=== PATIENT | female | born 1960 | race Caucasian/White ===

== ENCOUNTER 2020-09-24 15:32 | Emergency (ER) | payer MEDICARE, MEDICAID ==
[2020-09-24] MEDS ORDERED: HYDROmorphone 1 MG/ML Syringe IVPUSH ONE ×2 (16:12→19:45)
[2020-09-24] MEDS ORDERED: Lactated Ringers 1,000 ML IV SCH (16:15)
[2020-09-24 16:41] LABS: BLOOD UREA NITROGEN,BUN 4 mg/dL (7.0-18.0); CARBON DIOXIDE,CO2 24.9 mmol/L (21.0-32.0); CHLORIDE,CL 101 mmol/L (98-107); GLUCOSE RANDOM 97 mg/dL (74-106); LIPASE 17 U/L (73-393); POTASSIUM,K 3.6 mmol/L (3.5-5.1); SODIUM,NA 136 mmol/L (136-145)
[2020-09-24] MEDS ORDERED: diphenhydrAMINE 50 MG/ML SDV IVPUSH ONE (17:01)
[2020-09-24] MEDS ORDERED: Haloperidol Lactate 5 MG/ML SDV IM ONE (17:01)
[2020-09-24] MEDS ORDERED: Magnesium Sulfate/Water 2 GM/50 ML BAG IV ONE (17:02)
[2020-09-24] MEDS ORDERED: Iopamidol 755 MG/ML 500 ML Multipack Bottle IVPUSH ONE (17:29)
--- NOTE | 2020-09-24 17:55 | CT ---
INDICATION: Epigastric pain, history of pancreatitis. TECHNIQUE: IV contrast-enhanced CT abdomen and pelvis. 100 mL Isovue-370 injected. COMPARISON: 07/13/2018 CT, 08/05/2018 MRI. FINDINGS: The pancreas is atrophic. There are parenchymal calcifications throughout the pancreas. The pancreatic duct appears mildly dilated and somewhat irregular. These findings are compatible with chronic pancreatitis and are similar to the prior CT. There is increased dilation of the biliary tree, both intrahepatic and extrahepatic. Common bile duct measures 1.5 cm in diameter. It appears to taper somewhat within the pancreatic head. The gallbladder is distended on today`s exam. Findings suggest distal common bile duct obstruction. Spleen, adrenal glands, kidneys unremarkable. No bowel obstruction. Trace fluid in the pelvis. No adenopathy or free air. Chronic healed left iliac wing fracture. IMPRESSION: 1. Increased biliary dilation and gallbladder distention. Suspect distal common bile duct obstruction. Correlation with liver enzymes recommended. Consider ERCP. 2. Findings of chronic pancreatitis. Please note that all CT scans at this facility use dose modulation, iterative reconstruction, and/or weight-based dosing when appropriate to reduce radiation dose to as low as reasonably achievable. Dictated by Brandan Stewart MD @ Sep 24 2020 5:44PM Signed by Dr. Brandan Stewart @ Sep 24 2020 5:53PM
[2020-09-24] MEDS ORDERED: Sodium Chloride 0.9% 1,000 ML IV ONE (18:41)
[2020-09-24] MEDS ORDERED: Sodium Chloride 0.9% 10 ML Syringe FLUSH PRN (18:41)
[2020-09-24] MEDS ORDERED: Sodium Chloride 0.9% 2.5 ML Syringe FLUSH PRN (18:41)
[2020-09-24] MEDS ORDERED: Piperacillin/Tazobactam 4.5 GM in Sodium Chloride 0.9% 100 ML IV ONE ×2 (18:41→19:50)
[2020-09-24] MEDS ORDERED: Vancomycin 1.5 GM in Dextrose 5% in Water 250 ML IV ONE ×2 (18:41)
--- NOTE | 2020-09-24 18:41 | EDM.PDOC ---
ED HPI GENERAL MEDICAL PROBLEM - General Chief Complaint: Abdominal Pain Stated Complaint: ABDOMINAL PAIN Time Seen by Provider: 09/24/20 15:53 - History of Present Illness INITIAL COMMENTS - FREE TEXT/NARRATIVE: CHIEF COMPLAINT(S): Abdominal pain HISTORY OF PRESENT ILLNESS: This is a 60-year-old woman with a past medical history of chronic pancreatitis who comes to the emergency department with a chief complaint of abdominal pain. The patient states that she has been experiencing abdominal pain located throughout her abdomen. She denies any vomiting but states that she does have some nausea. She states that she does have oily stool and diarrhea which is similar to prior. She describes her abdominal pain as 8-10 out of 10 in the upper quadrants without any radiation. She states that this feels slightly different than her pancreatitis in the past. She states that she does have a history of pseudocyst where they did place a drain. She states that she uses a fentanyl patch and takes Dilaudid. She states that she did take Dilaudid prior to arrival and the pain has not improved. She denies any alcohol usage but did have different foods for the holiday. She states that she is also had some decreased weight in the last year because of decreased appetite. She states that she did have a colonoscopy approximately 1 year ago which was unremarkable. She states that she has not had a pancreatic flare since 2007. She denies any chest pain, shortness of breath, or fever. REVIEW OF SYSTEMS: Constitutional: Denies fever, chills. Eyes: Denies eye pain Ears, Nose, Mouth, & Throat: Denies earache Cardiovascular: Denies chest pain Respiratory: Denies shortness of breath Gastrointestinal: Positive for abdominal pain and nausea and chronic diarrhea. Denies vomiting, melena, hematochezia Genitourinary: Denies hematuria, dysuria Skin:Denies a rash Neurological: Denies blurred vision Psychiatric: Denies depression PAST MEDICAL HISTORY: As per history of present illness and as reviewed below otherwise noncontributory. SURGICAL HISTORY: As per history of present illness and as reviewed below otherwise noncontributory. SOCIAL HISTORY: As per history of present illness and as reviewed below other [place] noncontributory. FAMILY HISTORY: As per history of present illness and as reviewed below otherwise noncontributory. EXAMINATION OF ORGAN SYSTEMS/BODY AREAS: Constitutional: Blood pressure was 123/85, rate is 113, respiratory rate 18 with an oxygen saturation 95% on room air. Temperature 37.3 orally. General: Say elderly woman who appears to be in a significant amount of pain. Psychiatric: Appropriate mood and affect. Eyes: No scleral icterus or conjunctival erythema ENMT: Moist mucous membranes. No pharyngeal erythema Cardiovascular: Regular, rate, and rhythm. No gallops, murmurs, or rubs. Bilateral upper extremity pulses symmetric and intact. No peripheral edema. No JVD. Respiratory: Lungs clear to auscultation bilaterally. No wheezes, rales, or rhonchi. Gastrointestinal: Soft, nondistended, tenderness to palpation in the right upper quadrant and epigastric region. No rebound or guarding. Normal bowel sounds. Genitourinary: No suprapubic tenderness Musculoskeletal: Normal range of motion. Skin: No lesions or abrasions. Neurological: Alert, GCS 15 MEDICAL DECISION MAKING AND COURSE IN THE ED WITH INTERPRETATION/REVIEW OF DIAGNOSTIC STUDIES: This is a 60-year-old 9 with a past medical history of chronic pancreatitis who comes to the emergency department with epigastric and right upper quadrant pain associated with nausea who is tachycardic but afebrile. At this time I do suspect the possibility of acute on chronic pancreatitis. Will obtain labs including CBC, CMP, and lipase. Will obtain a urinalysis. We will provide the patient with 1 mg of IV Dilaudid and obtain a CT abdomen pelvis with IV contrast to evaluate for pseudocyst or abscess formation. We will also provide the patient with 1 L of lactated Ringer's bolus. Laboratory: CBC reveals a leukocytosis of 17.42 with hemoconcentration of her laboratory values including a hemoglobin of 19.1 and hematocrit of 54.7. Platelets are normal. CMP is unremarkable. Lipase is normal. Magnesium is low at 1.6. Urinalysis was a clean catch and was negative for leukocyte esterase, negative for nitrites, and positive for blood. Interpretation: Hematuria The radiological images were viewed by myself along with reading the report from the radiologist. CT abdomen pelvis with IV contrast reveals increased biliary dilatation and gallbladder distention. Suspect distal common bile duct obstruction. Correlate with liver enzymes is recommended. After CT finding I did discuss the results with the patient. At this time I discussed that I like to obtain an ultrasound. I discussed with her that I be contacting [facility] in [place] to speak with a GI specialist for further recommendations. In addition at this time given the leukocytosis and findings on CT I did start the sepsis protocol for intra-abdominal infection. We will provide the patient with equivalent of 30 cc/kg fluid bolus and start the patient on Zosyn and vancomycin. Blood cultures and lactic acid will also be obtained. Patient had continued pain after initial administration of Dilaudid therefore I provided patient with Haldol and Benadryl for pain and nausea relief. Laboratory: Lactic acid is 2.0. Covid is negative. We did contact, [facility] [place] none of them are able to do ERCP. Therefore we contacted [facility] and spoke with Dr. Portillo who accepted the transfer. At the time of transfer the patient's abdominal ultrasound was completed but not yet read. The patient will be transferred via fixed wing. The radiological images were viewed by myself along with reading the report from the radiologist. Abdominal ultrasound reveals dilated biliary tree as seen on CT with sludge in the gallbladder but no obvious stones. There is pancreatic calcification and mild ductal dilation. DISPOSITION: The patient will be transferred to [facility] via fixed wing in stable condition CONDITION: Serious PROCEDURES: None FINAL IMPRESSION(S)/DIAGNOSES: 1. Acute sepsis likely secondary to choledocholithiasis Memo Jorgensen M.D. abdomen Pain Score (Numeric/FACES): 9 - Related Data Allergies Allergy/AdvReac Type Severity Reaction Status Date / Time No Known Allergies Allergy Verified 09/24/20 16:00 Home Meds: Home Meds Amylase/Lipase/Protease [Tim FAROOQ 24,000 Unit] 1 each PO ASDIRECTED 07/13/18 [History] HYDROmorphone HCl [Dilaudid] 8 mg PO ASDIRECTED PRN 07/13/18 [History] fentaNYL [Duragesic] 1 patch IDERM ASDIRECTED 07/13/18 [History] Past Medical History HEENT History: Reports: None Cardiovascular History: Reports: None Respiratory History: Reports: None Gastrointestinal History: Reports: Pancreatitis Other Gastrointestinal History: Pancreatic Cyst Genitourinary History: Reports: None [employer] History: Reports: None Musculoskeletal History: Reports: Osteoporosis Neurological History: Reports: None Psychiatric History: Reports: Anxiety, Depression Endocrine/Metabolic History: Reports: None Hematologic History: Reports: None Immunologic History: Reports: None Oncologic (Cancer) History: Reports: None Dermatologic History: Reports: None - Infectious Disease History Infectious Disease History: Reports: None - Past Surgical History Head Surgeries/Procedures: Reports: None HEENT Surgical History: Reports: None GI Surgical History: Reports: Appendectomy Musculoskeletal Surgical History: Reports: Other (See Below) Other Musculoskeletal Surgeries/Procedures:: Left hip Social & Family History - Family History Family Medical History: No Pertinent Family History - Tobacco Use Tobacco Use Status *Q: Current Every Day Tobacco User Years of Tobacco use: 50 Packs/Tins Daily: 0.5 - Caffeine Use Caffeine Use: Reports: Coffee - Recreational Drug Use Recreational Drug Use: Yes Recreational Drug Type: Reports: Marijuana/Hashish ED ROS GENERAL - Review of Systems Review Of Systems: See Below ED EXAM, GI/ABD - Physical Exam Exam: See Below Course - Vital Signs Last Recorded V/S: Last Vital Signs Temp 37.3 C 09/24/20 18:09 Pulse 99 09/24/20 19:03 Resp 16 09/24/20 19:03 BP 120/69 09/24/20 19:03 Pulse Ox 93 L 09/24/20 19:03 - Orders/Labs/Meds Orders: Active Orders 24 hr Category Date Time Status Blood Pressure Mgt: Sepsis [RC] Q15MX2 Care 09/24/20 18:42 Active CULTURE BLOOD [BC] Stat Lab 09/24/20 19:10 Received CULTURE BLOOD [BC] Stat Lab 09/24/20 19:20 Received Lactated Ringers [Ringers, Lactated] 1,000 ml Med 09/24/20 16:15 Active IV ASDIRECTED Sodium Chloride 0.9% [Saline Flush] Med 09/24/20 18:41 Active 10 ml FLUSH ASDIRECTED PRN Sodium Chloride 0.9% [Saline Flush] Med 09/24/20 18:41 Active 2.5 ml FLUSH ASDIRECTED PRN Blood Culture x2 Reflex Set [OM.PC] Stat Oth 09/24/20 18:42 Ordered Saline Lock Insert [OM.PC] Stat Oth 09/24/20 18:42 Ordered Severe Sepsis Onset Time [OM.PC] Stat Oth 09/24/20 18:42 Ordered Medication Orders Lactated Ringer's (Ringers, Lactated) 1,000 mls @ 999 mls/hr IV ASDIRECTED RIKA Last Admin: 09/24/20 16:35 Dose: 999 mls/hr Documented by: SIRIA Sodium Chloride (Saline Flush) 10 ml FLUSH ASDIRECTED PRN PRN Reason: Keep Vein Open Last Admin: 09/24/20 19:27 Dose: 10 ml Documented by: SIRIA Sodium Chloride (Saline Flush) 2.5 ml FLUSH ASDIRECTED PRN PRN Reason: Keep Vein Open Last Admin: 09/24/20 19:27 Dose: 2.5 ml Documented by: SIRIA Labs: Laboratory Tests 09/24/20 09/24/20 09/24/20 Range/Units 16:08 16:08 16:08 WBC 17.42 H (4.0-11.0) K/uL RBC 5.39 (4.30-5.90) M/uL Hgb 19.1 H (12.0-16.0) g/dL Hct 54.7 H (36.0-46.0) % MCV 101.5 H (80.0-98.0) fL MCH 35.4 H (27.0-32.0) pg MCHC 34.9 (31.0-37.0) g/dL RDW Std Deviation 50.9 (28.0-62.0) fl RDW Coeff of Waldo 14 (11.0-15.0) % Plt Count 233 (150-400) K/uL MPV 9.20 (7.40-12.00) fL Neut % (Auto) 76.2 (48.0-80.0) % Lymph % (Auto) 18.6 (16.0-40.0) % Sharkey % (Auto) 4.8 (0.0-15.0) % Eos % (Auto) 0.3 (0.0-7.0) % Baso % (Auto) 0.1 (0.0-1.5) % Neut # (Auto) 13.3 H (1.4-5.7) K/uL Lymph # (Auto) 3.2 H (0.6-2.4) K/uL Sharkey # (Auto) 0.8 (0.0-0.8) K/uL Eos # (Auto) 0.1 (0.0-0.7) K/uL Baso # (Auto) 0.0 (0.0-0.1) K/uL Nucleated RBC % 0.0 /100WBC Nucleated RBCs # 0 K/uL INR 1.29 Lactate (0.20-2.00) mmol/L Sodium 136 (136-145) mmol/L Potassium 3.6 (3.5-5.1) mmol/L Chloride 101 (98-107) mmol/L Carbon Dioxide 24.9 (21.0-32.0) mmol/L BUN 4 L (7.0-18.0) mg/dL Creatinine 0.8 (0.6-1.0) mg/dL Est Cr Clr Drug Dosing 63.77 mL/min Estimated GFR (MDRD) > 60.0 ml/min Glucose 97 (74-106) mg/dL Calcium 9.2 (8.5-10.1) mg/dL Magnesium 1.6 L (1.8-2.4) mg/dL Total Bilirubin 1.0 (0.2-1.0) mg/dL AST 18 (15-37) IU/L ALT 21 (14-63) IU/L Alkaline Phosphatase 115 (46-116) U/L Total Protein 7.7 (6.4-8.2) g/dL Albumin 3.7 (3.4-5.0) g/dL Globulin 4.0 (2.6-4.0) g/dL Albumin/Globulin Ratio 0.9 (0.9-1.6) Lipase 17 L (73-393) U/L Urine Color Urine Appearance Urine pH (5.0-8.0) Ur Specific [place] (1.001-1.035) Urine Protein (NEGATIVE) mg/dL Urine Glucose (UA) (NEGATIVE) mg/dL Urine Ketones (NEGATIVE) mg/dL Urine Occult Blood (NEGATIVE) Urine Nitrite (NEGATIVE) Urine Bilirubin (NEGATIVE) Urine Urobilinogen (<2.0) EU/dL Ur Leukocyte Esterase (NEGATIVE) Urine RBC (0-2/HPF) Urine WBC (0-5/HPF) Ur Epithelial Cells (NONE-FEW) Urine Bacteria (NEGATIVE) SARS-CoV-2 RNA (MOOSE) (NEGATIVE) 09/24/20 09/24/20 09/24/20 Range/Units 16:08 16:22 18:14 WBC (4.0-11.0) K/uL RBC (4.30-5.90) M/uL Hgb (12.0-16.0) g/dL Hct (36.0-46.0) % MCV (80.0-98.0) fL MCH (27.0-32.0) pg MCHC (31.0-37.0) g/dL RDW Std Deviation (28.0-62.0) fl RDW Coeff of Waldo (11.0-15.0) % Plt Count (150-400) K/uL MPV (7.40-12.00) fL Neut % (Auto) (48.0-80.0) % Lymph % (Auto) (16.0-40.0) % Sharkey % (Auto) (0.0-15.0) % Eos % (Auto) (0.0-7.0) % Baso % (Auto) (0.0-1.5) % Neut # (Auto) (1.4-5.7) K/uL Lymph # (Auto) (0.6-2.4) K/uL Sharkey # (Auto) (0.0-0.8) K/uL Eos # (Auto) (0.0-0.7) K/uL Baso # (Auto) (0.0-0.1) K/uL Nucleated RBC % /100WBC Nucleated RBCs # K/uL INR Lactate 2.0 (0.20-2.00) mmol/L Sodium (136-145) mmol/L Potassium (3.5-5.1) mmol/L Chloride (98-107) mmol/L Carbon Dioxide (21.0-32.0) mmol/L BUN (7.0-18.0) mg/dL Creatinine (0.6-1.0) mg/dL Est Cr Clr Drug Dosing mL/min Estimated GFR (MDRD) ml/min Glucose (74-106) mg/dL Calcium (8.5-10.1) mg/dL Magnesium (1.8-2.4) mg/dL Total Bilirubin (0.2-1.0) mg/dL AST (15-37) IU/L ALT (14-63) IU/L Alkaline Phosphatase (46-116) U/L Total Protein (6.4-8.2) g/dL Albumin (3.4-5.0) g/dL Globulin (2.6-4.0) g/dL Albumin/Globulin Ratio (0.9-1.6) Lipase (73-393) U/L Urine Color YELLOW Urine Appearance CLEAR Urine pH 6.0 (5.0-8.0) Ur Specific [place] <= 1.005 (1.001-1.035) Urine Protein NEGATIVE (NEGATIVE) mg/dL Urine Glucose (UA) NEGATIVE (NEGATIVE) mg/dL Urine Ketones NEGATIVE (NEGATIVE) mg/dL Urine Occult Blood LARGE H (NEGATIVE) Urine Nitrite NEGATIVE (NEGATIVE) Urine Bilirubin NEGATIVE (NEGATIVE) Urine Urobilinogen 0.2 (<2.0) EU/dL Ur Leukocyte Esterase NEGATIVE (NEGATIVE) Urine RBC 1-5 (0-2/HPF) Urine WBC 0-2 (0-5/HPF) Ur Epithelial Cells RARE (NONE-FEW) Urine Bacteria FEW (NEGATIVE) SARS-CoV-2 RNA (MOOSE) NEGATIVE (NEGATIVE) Meds: Medications Generic Name Dose Route Start Last Admin Trade Name Freq PRN Reason Stop Dose Admin Lactated Ringer's 1,000 mls @ 999 mls/hr 09/24/20 16:15 09/24/20 16:35 Ringers, Lactated IV 999 mls/hr ASDIRECTED RIKA Administration Sodium Chloride 10 ml 09/24/20 18:41 09/24/20 19:27 Saline Flush FLUSH 10 ml ASDIRECTED PRN Administration Keep Vein Open Sodium Chloride 2.5 ml 09/24/20 18:41 09/24/20 19:27 Saline Flush FLUSH 2.5 ml ASDIRECTED PRN Administration Keep Vein Open Discontinued Medications Generic Name Dose Route Start Last Admin Trade Name Freq PRN Reason Stop Dose Admin Diphenhydramine HCl 50 mg 09/24/20 17:01 09/24/20 17:10 Benadryl IVPUSH 09/24/20 17:02 50 mg ONETIME ONE Administration Haloperidol Lactate 5 mg 09/24/20 17:01 09/24/20 17:09 Haldol IM 09/24/20 17:02 5 mg ONETIME ONE Administration Hydromorphone HCl 1 mg 09/24/20 16:12 09/24/20 16:16 Dilaudid IVPUSH 09/24/20 16:13 1 mg ONETIME ONE Administration Hydromorphone HCl 1 mg 09/24/20 19:45 09/24/20 20:12 Dilaudid IVPUSH 09/24/20 19:46 1 mg ONETIME ONE Administration Magnesium Sulfate 2 gm in 50 mls @ 50 mls/hr 09/24/20 17:02 09/24/20 17:10 Magnesium Sulfate In Water Premix IV 09/24/20 18:01 50 mls/hr ONETIME ONE Administration Sodium Chloride 1,000 mls @ 2,000 mls/hr 09/24/20 18:41 09/24/20 19:26 Normal Saline IV 09/24/20 19:10 2,000 mls/hr BOLUS ONE Administration Protocol Piperacillin Sod/Tazobactam 100 mls @ 200 mls/hr 09/24/20 18:41 09/24/20 19:50 Sod 4.5 gm/ Sodium Chloride IV 09/24/20 19:10 Not Given STAT ONE Vancomycin HCl 1.5 gm/ 250 mls @ 167 mls/hr 09/24/20 18:41 09/24/20 19:50 Dextrose/Water IV 09/24/20 20:10 167 mls/hr ONETIME ONE Administration Sodium Chloride Confirm 09/24/20 19:39 09/24/20 19:50 Normal Saline Administered 09/24/20 19:40 Not Given Dose 100 mls @ as directed .ROUTE .STK-MED ONE Piperacillin Sod/Tazobactam 100 mls @ 200 mls/hr 09/24/20 19:50 09/24/20 19:51 Sod 4.5 gm/ Sodium Chloride IV 09/24/20 20:19 200 mls/hr ONETIME ONE Administration Iopamidol 100 ml 09/24/20 17:29 09/24/20 17:29 Isovue Multipack-370 (76%) IVPUSH 09/24/20 17:30 100 ml ONETIME ONE Administration Departure - Departure Time of Disposition: 19:38 Disposition: DC/Tfer to Acute Hospital 02 Condition: Serious Clinical Impression: Choledocholithiasis Sepsis Qualifiers: Sepsis type: sepsis due to unspecified organism Sepsis acute organ dysfunction status: without acute organ dysfunction Qualified Code(s): A41.9 - Sepsis, unspecified organism - Discharge Information *PRESCRIPTION DRUG MONITORING PROGRAM REVIEWED*: No *COPY OF PRESCRIPTION DRUG MONITORING REPORT IN PATIENT JANETT: No Referrals: Orion Salguero MD [Primary Care Provider] - Forms: ED Department Discharge Sepsis Event Note (ED) - Evaluation Sepsis Screening Result: No Definite Risk - Focused Exam Vital Signs: Vital Signs Temp Temp Pulse Resp BP Pulse Ox 09/24/20 19:03 99 16 120/69 93 L 09/24/20 18:09 37.3 C 09/24/20 18:04 93 18 108/54 L 94 L 09/24/20 17:14 107 H 20 133/73 94 L 09/24/20 16:37 108 H 20 123/79 95 09/24/20 15:56 35.8 C L 113 H 18 123/85 95 - My Orders Last 24 Hours: My Active Orders 09/24/20 16:15 Lactated Ringers [Ringers, Lactated] 1,000 ml IV ASDIRECTED 09/24/20 18:41 Sodium Chloride 0.9% [Saline Flush] 10 ml FLUSH ASDIRECTED PRN Sodium Chloride 0.9% [Saline Flush] 2.5 ml FLUSH ASDIRECTED PRN 09/24/20 18:42 Blood Pressure Mgt: Sepsis [RC] Q15MX2 Blood Culture x2 Reflex Set [OM.PC] Stat Saline Lock Insert [OM.PC] Stat Severe Sepsis Onset Time [OM.PC] Stat 09/24/20 19:10 CULTURE BLOOD [BC] Stat 09/24/20 19:20 CULTURE BLOOD [BC] Stat - Assessment/Plan Last 24 Hours: My Active Orders 09/24/20 16:15 Lactated Ringers [Ringers, Lactated] 1,000 ml IV ASDIRECTED 09/24/20 18:41 Sodium Chloride 0.9% [Saline Flush] 10 ml FLUSH ASDIRECTED PRN Sodium Chloride 0.9% [Saline Flush] 2.5 ml FLUSH ASDIRECTED PRN 09/24/20 18:42 Blood Pressure Mgt: Sepsis [RC] Q15MX2 Blood Culture x2 Reflex Set [OM.PC] Stat Saline Lock Insert [OM.PC] Stat Severe Sepsis Onset Time [OM.PC] Stat 09/24/20 19:10 CULTURE BLOOD [BC] Stat 09/24/20 19:20 CULTURE BLOOD [BC] Stat
[2020-09-24] MEDS ORDERED: Sodium Chloride 0.9% 100 ML ONE (19:39)
--- NOTE | 2020-09-24 19:52 | US ---
INDICATION: Biliary dilation. Evaluate for choledocholithiasis. TECHNIQUE: Ultrasound abdomen limited. Sonographic images of the right upper quadrant were obtained using go-scale and color Doppler images. COMPARISON: Abdomen pelvis CT of the same day FINDINGS: Liver: Normal in size and echotexture. No masses. Intrahepatic biliary dilation is present. Gallbladder: Small amount sludge in the neck but no formed stones identified. Normal wall thickness. No pericholecystic fluid. Negative sonographic Velasquez`s sign. Common bile duct: 16 mm. Pancreas: Dilated pancreatic duct. Calcifications within the pancreas, some of which may be within the duct. Right kidney: Normal. Vasculature: Proximal abdominal aorta and IVC are normal. IMPRESSION: 1. Dilated biliary tree as on the CT. Sludge in the gallbladder but no stones seen. 2. Pancreatic calcifications and mild ductal dilation. Some of the calcifications may be within the duct. Dictated by Brandan Stewart MD @ Sep 24 2020 7:44PM Signed by Dr. Brandan Stewart @ Sep 24 2020 7:51PM
== END 2020-09-24 20:20 ==
LOC: MW.ED 15:32
DX: A41.9 Sepsis, unspecified organism (principal); F17.210 Nicotine dependence, cigarettes, uncomplicated; Z20.828 Contact with and (suspected) exposure to other viral communicable diseases
CPT/HCPCS: 36415; 74177; 76705; 80053; 81001; 83605; 83690; 83735; 85025; 85610; 87040; 96365; 96372; 96375; 96376; 99285; J1170; J1200; J1630; J2543; J3370; J3475; J7030; J7050; J7060; J7120; Q9967; U0002

== ENCOUNTER 2022-05-10 12:41 | Emergency (ER) | payer MEDICARE, MEDICAID ==
[2022-05-10] MEDS ORDERED: Sodium Chloride 0.9% 10 ML Syringe FLUSH PRN (12:58)
[2022-05-10] MEDS ORDERED: Sodium Chloride 0.9% 1,000 ML IV ONE (12:58)
[2022-05-10] MEDS ORDERED: Ondansetron 4 MG/2 ML SDV IVPUSH ONE (12:58)
[2022-05-10] MEDS ORDERED: Sodium Chloride 0.9% 2.5 ML Syringe FLUSH PRN (12:58)
[2022-05-10] MEDS ORDERED: Morphine 4 MG/ML VIAL IVPUSH ONE (13:05)
[2022-05-10] MEDS ORDERED: Ketorolac 30 MG/ML SDV IVPUSH ONE (13:05)
[2022-05-10 13:42] LABS: CARBON DIOXIDE,CO2 25.2 mmol/L (21.0-32.0); POTASSIUM,K 3.8 mmol/L (3.5-5.1)
[2022-05-10 13:57] LABS: CORONAVIRUS COVID-19 NAA NEGATIVE (NEGATIVE); INFLUENZA A NAA NEGATIVE (NEGATIVE); INFLUENZA B NAA NEGATIVE (NEGATIVE)
== END 2022-05-10 16:54 | disposition home or self-care (01) ==
LOC: MW.ED 12:41
DX: K52.9 Noninfective gastroenteritis and colitis, unspecified (principal); Z79.899 Other long term (current) drug therapy; Z90.49 Acquired absence of other specified parts of digestive tract; Z20.822 Contact with and (suspected) exposure to COVID-19
CPT/HCPCS: 0240U; 36415; 71045; 74177; 80053; 83605; 83690; 84484; 85025; 87040; 93005; 96361; 96374; 96375; 99284; J1885; J2270; J2405; J3490; J7030

== ENCOUNTER 2024-12-10 08:05 | Emergency (ER) | payer MEDICARE, MEDICAID ==
[2024-12-10 08:35] LABS: BASOPHILS ABSOLUTE AUTO 0.03 K/uL (0.00-0.20); BASOPHILS PERCENT AUTO 0.2 % (0.0-1.0); HEMATOCRIT 49.5 % (37.0-47.0); HEMOGLOBIN 17.4 g/dL (12.0-16.0); IMMATURE GRAN ABSOLUTE AUTO 0.04 K/uL (0.00-0.05); IMMATURE GRAN PERCENT AUTO 0.3 % (0.0-0.4); LYMPHOCYTES ABSOLUTE AUTO 2.29 K/uL (1.00-4.80); LYMPHOCYTES PERCENT AUTO 16.5 % (24.0-44.0); MEAN CORPUSCULAR HEMOGLOBIN 33.7 pg (28.0-32.0); MEAN CORPUSCULAR HGB CONC 35.2 g/dL (32.0-36.0); MEAN CORPUSCULAR VOLUME 95.9 fL (83.0-99.0); MEAN PLATELET VOLUME 8.5 fL (9.4-12.3); MONOCYTES ABSOLUTE AUTO 0.87 K/uL (0.00-0.80); MONOCYTES PERCENT AUTO 6.3 % (0.0-8.0); NEUTROPHILS ABSOLUTE AUTO 10.63 K/uL (1.80-7.70); NEUTROPHILS PERCENT AUTO 76.7 % (41.0-71.0); PLATELET COUNT,PLT 433 K/uL (150-400); RED BLOOD CELL COUNT 5.16 M/uL (4.10-5.30); WHITE BLOOD CELL COUNT,WBC 13.86 K/uL (3.9-11.3)
[2024-12-10] MEDS: Sodium Chloride 0.9% 1,000 ML IV ONE ×2 (08:47→10:29)
[2024-12-10] MEDS: Ondansetron 4 MG/2 ML SDV IVPUSH ONE (08:47)
[2024-12-10] MEDS: Morphine 2 MG/ML SYRINGE IVPUSH ONE (08:48)
[2024-12-10 08:59] LABS: ALBUMIN 4.3 g/dL (3.4-5.0); BILIRUBIN TOTAL 0.8 mg/dL (0.2-1.0); CALCIUM 9.6 mg/dL (8.5-10.1); CARBON DIOXIDE,CO2 32.1 mmol/L (21.0-32.0); EST CRCL DRUG DOSING (CG) 20.08 mL/min; POTASSIUM,K 3.4 mmol/L (3.5-5.1); PROTEIN TOTAL,TP 8.5 g/dL (6.4-8.2)
[2024-12-10] MEDS: Morphine 2 MG/ML SYRINGE IVPUSH PRN (09:27)
[2024-12-10 09:57] LABS: APPEARANCE,URINE SLT CLOUDY; COLOR,URINE YELLOW; GLUCOSE,URINE NEGATIVE (NEGATIVE); KETONES,URINE 15 mg/dL (NEGATIVE); LEUKOCYTE ESTERASE,URINE NEGATIVE (NEGATIVE); NITRITE,URINE POSITIVE (NEGATIVE); OCCULT BLOOD,URINE SMALL (NEGATIVE); PH,URINE 5.5 (5.0-8.0); PROTEIN,URINE 100 mg/dL (NEGATIVE)
[2024-12-10 10:00] LABS: BILIRUBIN,URINE MODERATE (NEGATIVE)
[2024-12-10 10:01] LABS: PRO B-TYPE NATRIUR PEPT,BNPPRO 323 pg/mL (0-125)
[2024-12-10 10:07] LABS: BACTERIA,URINE 2+ (NEGATIVE); EPITHELIAL CELLS,URINE FEW (NONE-FEW); RBC,URINE 0-2 (0-2/HPF)
[2024-12-10] MEDS: cefTRIAXone 2 GM in Sodium Chloride 0.9% 50 ML IV ONE (10:29)
[2024-12-10] MEDS: droPERidol 2.5 MG/ML SDV IVPUSH ONE (10:45)
[2024-12-10] MEDS: HYDROmorphone 0.5 MG/0.5 ML Syringe IVPUSH PRN (10:46)
[2024-12-10] MEDS ORDERED: diphenhydrAMINE 50 MG/ML SDV IVPUSH ONE (12:07)
[2024-12-10] MEDS: LORazepam 2 MG/ML SDV IVPUSH ONE (12:10)
[2024-12-10] MEDS: Sodium Chloride 0.9% 1,000 ML IV SCH (14:17)
[2024-12-10] MEDS: HYDROmorphone 0.5 MG/0.5 ML Syringe IVPUSH ONE (16:17)
== END 2024-12-10 16:33 ==
LOC: MW.ED 08:05
DX: N17.9 Acute kidney failure, unspecified (principal); K85.90 Acute pancreatitis without necrosis or infection, unspecified; N30.00 Acute cystitis without hematuria; K31.89 Other diseases of stomach and duodenum; D72.829 Elevated white blood cell count, unspecified; R19.06 Epigastric swelling, mass or lump; R19.7 Diarrhea, unspecified; R10.816 Epigastric abdominal tenderness; R11.2 Nausea with vomiting, unspecified; Z79.899 Other long term (current) drug therapy; Z90.49 Acquired absence of other specified parts of digestive tract
CPT/HCPCS: 36415; 74176; 74181; 80053; 81001; 83605; 83690; 83880; 84484; 85025; 93005; 96361; 96365; 96375; 96376; 99285; J0696; J1790; J2060; J2270; J2405; J3490; J7030; 93010

== ENCOUNTER 2025-04-11 11:45 | Emergency (ER) | payer MEDICARE, MEDICAID ==
[2025-04-11] MEDS ORDERED: Sodium Chloride 0.9% 2.5 ML Syringe FLUSH PRN (11:51)
[2025-04-11] MEDS ORDERED: Sodium Chloride 0.9% 10 ML Syringe FLUSH PRN (11:51)
[2025-04-11 12:25] LABS: BASOPHILS ABSOLUTE AUTO 0.04 K/uL (0.00-0.20); BASOPHILS PERCENT AUTO 0.3 % (0.0-1.0); EOSINOPHILS ABSOLUTE AUTO 0.07 K/uL (0.00-0.45); EOSINOPHILS PERCENT AUTO 0.5 % (0.0-6.0); IMMATURE GRAN ABSOLUTE AUTO 0.07 K/uL (0.00-0.05); IMMATURE GRAN PERCENT AUTO 0.5 % (0.0-0.4); LYMPHOCYTES ABSOLUTE AUTO 2.65 K/uL (1.00-4.80); LYMPHOCYTES PERCENT AUTO 18.1 % (24.0-44.0); MEAN PLATELET VOLUME 8.4 fL (9.4-12.3); MONOCYTES ABSOLUTE AUTO 0.64 K/uL (0.00-0.80); MONOCYTES PERCENT AUTO 4.4 % (0.0-8.0); NEUTROPHILS ABSOLUTE AUTO 11.15 K/uL (1.80-7.70); NEUTROPHILS PERCENT AUTO 76.2 % (41.0-71.0); NRBC ABSOLUTE 0.00 K/uL (0.00-0.02); NRBC PERCENT 0.0 /100WBC (0.0-0.2); PLATELET COUNT,PLT 466 K/uL (150-400); RED BLOOD CELL COUNT 5.31 M/uL (4.10-5.30); WHITE BLOOD CELL COUNT,WBC 14.62 K/uL (3.9-11.3)
[2025-04-11] MEDS: Ondansetron 4 MG/2 ML SDV IVPUSH ONE (12:25)
[2025-04-11 12:52] LABS: A/G RATIO 1.0 (0.9-1.6); ALANINE AMINOTRANSFERASE,ALT 22.0 IU/L (14-63); ASPARTATE AMNIOTRANSFERASE,AST 22.0 IU/L (15-37); BILIRUBIN TOTAL 0.6 mg/dL (0.2-1.0); BLOOD UREA NITROGEN,BUN 7.0 mg/dL (7.0-18.0); CARBON DIOXIDE,CO2 24.6 mmol/L (21.0-32.0); CHLORIDE,CL 101.0 mmol/L (98-107); CREATININE 1.3 mg/dL (0.6-1.0); EST CRCL DRUG DOSING (CG) 33.67 mL/min; GLUCOSE RANDOM 173.0 mg/dL (74-106); POTASSIUM,K 3.9 mmol/L (3.5-5.1); PROTEIN TOTAL,TP 8.1 g/dL (6.4-8.2); SODIUM,NA 139.0 mmol/L (136-145)
[2025-04-11 12:56] LABS: LACTIC ACID 1.8 mmol/L (0.4-2.0)
[2025-04-11 12:57] LABS: ESTIMATED GFR 46.0 mL/min (>60)
[2025-04-11] MEDS: Iopamidol 755 MG/ML 500 ML Multipack Bottle IVPUSH STA (14:34)
[2025-04-11] MEDS: Acetaminophen/oxyCODONE 325-5 MG Tab PO ONE (16:20)
[2025-04-11 16:33] LABS: APPEARANCE,URINE CLEAR; GLUCOSE,URINE NEGATIVE (NEGATIVE); OCCULT BLOOD,URINE MODERATE (NEGATIVE)
[2025-04-11 16:40] LABS: EPITHELIAL CELLS,URINE RARE (NONE-FEW)
== END 2025-04-11 17:05 | disposition home or self-care (01) ==
LOC: MW.ED 11:45
DX: K52.9 Noninfective gastroenteritis and colitis, unspecified (principal); Z75.3 Unavailability and inaccessibility of health-care facilities; Z79.899 Other long term (current) drug therapy
CPT/HCPCS: 36415; 74177; 80053; 81001; 83605; 83690; 85025; 87040; 96361; 96374; 96375; 96376; 99284; A9270; J2270; J2405; J7030; Q9967; 99283